=== PATIENT | male | born 2000 | race Caucasian/White ===

== ENCOUNTER 2018-01-12 00:55 | Emergency (ER) | payer SELFPAY ==
[~2018-01-12] VITALS: Ht 188 cm; Wt 71.6 kg
[~2018-01-12 00:55] MED LIST: SINGULAIR4 MG PO; ZYRTEC5 M1 PO
[2018-01-12] MEDS ORDERED: KEFLEX500 MG PO (02:05)
[2018-01-12 03:12] VITALS: BP 110/66
== END 2018-01-12 03:12 | disposition home or self-care (01) ==
LOC: EME 00:55
DX: N61.0 Mastitis without abscess (principal); F17.200 Nicotine dependence, unspecified, uncomplicated
CPT/HCPCS: 99281; 99284